=== PATIENT | female | born 1995 | race Caucasian/White ===

== ENCOUNTER 2016-10-08 16:47 | Inpatient (IN) | payer OTHER ==
[~2016-10-08] VITALS: Ht 157.5 cm; Wt 79.4 kg
[2016-10-08] MEDS ORDERED: PRENAT PO (17:14)
[2016-10-08 17:15] VITALS: BP 127/59; PULSE 82; RESP 18
--- NOTE | 2016-10-08 17:34 | RADRPT ---
PROCEDURE: US biophysical profile. CLINICAL INDICATION: Decreased motion. Contractions. TECHNIQUE: Multiple sonographic images of the uterus were obtained. The images were revi ewed on a PACS workstation. COMPARISON: No prior studies are available for comparison. FINDINGS: There is a single live intrauterine gestation. heart rate is 143 beats per minute. The position is cephalic. The placenta is anterior grade III with no abruption or previa. The HARSH is 14.1 cm. (Normal = 5-20 cm.) Breathing Movement: 2 Gross Body Movement: 2 Tone: 2 Qualitative Amniotic Fluid Volume: 2 TOTAL: 8 IMPRESSION: 1. The biophysical score is 8/8. RPTAT: QQ .Prateek Yuen MD, MD Date Time Electronically viewed and signed by .Prateek Yuen MD, on 10/08/2016 17:34 .R/
[2016-10-08] MEDS ORDERED: BUTORPHANOL 2 MG INJ IV PRN ×2 (18:30)
[2016-10-08] MEDS ORDERED: LACTATED RINGER'S 1,000 ML IV PRN (18:30)
[2016-10-08] MEDS ORDERED: MISOPROSTOL 200 MCG TAB PR PRN (18:30)
[2016-10-08] MEDS ORDERED: METHYLERGONOVINE 0.2 MG INJ IM PRN (18:30)
[2016-10-08] MEDS ORDERED: IBUPROFEN 600 MG TAB PO PRN (18:30)
[2016-10-08] MEDS ORDERED: NA PHOSPHATE/BIPHOS 133 ML ENEMA PR PRN (18:30)
[2016-10-08] MEDS ORDERED: OXYTOCIN 30 UNITS/LR 500 ML IV PRN (18:30)
[2016-10-08] MEDS ORDERED: CARBOPROST 250 MCG INJ IM PRN (18:30)
[2016-10-08] MEDS ORDERED: OXYTOCIN 30 UNITS/LR 500 ML IV SCH ×2 (18:30)
[2016-10-08] MEDS ORDERED: MINERAL OIL LIGHT 10 ML VIAL TOP PRN (18:30)
[2016-10-08] MEDS ORDERED: LIDOCAINE 1% (MPF) 30 ML INJ INJ PRN (18:30)
--- NOTE | 2016-10-08 18:46 | TRIAGE ---
OB Triage Datetime Report Generated by CPN: 10/08/2016 18:45 Datetime: 10/08/2016 18:27 Labor Evaluation Frequency: 1.5-3 Monitor Mode: External Duration (sec)2399: 30-60 Quality: Mild Pattern: Normal: <= 5 Contractions in 10 Minutes Resting Tone [place]: Relaxed Heart Rate FHR Baseline Rate: 155 Monitor Mode: External US FHR Baseline Changes: No Baseline Change Variability: Moderate 6-25 bpm Accelerations: 10X10 Decelerations: Variable Category: Category II Pain Assessment Pain Scale: 6 Pain Presence: Intermittent Pain Type: Contraction Pain Location: Abdomen Datetime: 10/08/2016 17:44 Labor Evaluation Frequency: 1-4 Monitor Mode: External Duration (sec)2399: 30-60 Quality: Mild Pattern: Normal: <= 5 Contractions in 10 Minutes Resting Tone [place]: Relaxed Heart Rate FHR Baseline Rate: 145 Monitor Mode: External US FHR Baseline Changes: No Baseline Change Variability: Moderate 6-25 bpm Accelerations: 15X15 Decelerations: Variable Category: Category II Comments: OCCASIONAL VARIABLES, SOME WITH CTX Datetime: 10/08/2016 17:11 Vaginal Exam Dilatation (cms): 2.5 Effacement (%): 70 Station: -2 Exam By: MAY Vaginal Bleeding: None Cervix, Consistency: Soft Cervix, Position: Posterior Presentation 'A': Cephalic Datetime: 10/08/2016 17:08 Stage of : OB Triage Assessment Type: Triage Maternal Assessment Level of Consciousness: Fully Conscious Headache: Denies Blurred Vision: No Respiratory Effort: Unlabored; Regular Rhythm; Equal Expansion Breath Sounds, Left: Clear and Equal Breath Sounds, Right: Clear and Equal Nausea/Vomiting: Denies RUQ Epigastric Pain: Denies Lower Extremities Edema: Bilateral Lower Extremities Degree: 1+ Upper Extremities Edema: None Degree: None Facial Edema: None Temperature Route: Oral Fall Risk Assessment History of Falling: (0) No Secondary Diagnosis: (0) No Ambulatory Aid: (0) Bedrest/Nurse Assist IV Therapy: (0) No Gait: (0) Normal/Bedrest/Immobile Mental Status: (0) Oriented to Own Ability Fall Score: 0 Fall Risk Score Definition: No Risk: No action required Pain Assessment Pain Scale: 6 Pain Presence: Intermittent Pain Type: Contraction Pain Location: Abdomen Datetime: 10/08/2016 17:05 Time of Arrival: 10/08/2016 18:28 EGA: 39.2 Arrived By: Ambulatory Arrived From: Dr. Office Chief Complaint: CONTRACTIONS; STARTING LAST NIGHT, EVERY 2 MINUTES NOW Movement: Present Contractions: Regular Contractions: 2 Rupture of Membranes: Denies Vaginal Bleeding: None Vaginal Discharge: Denies Abdominal Trauma: Not Applicable Patient Complaints: Contractions Time Provider Notified: 10/08/2016 17:30 Provider Notified: DR. BURGOS Initial Plan: EFM x2, BPP, SVE
[2016-10-08] MEDS: LACTATED RINGER'S 1,000 ML IV SCH (19:11)
[2016-10-08 19:31] LABS: ADD SCAN DIFF NO
[2016-10-08 19:35] LABS: BASOPHIL # 0.1 10^3/ul (0.0-0.1); BASOPHILS % 0.5 % (0.0-2.0); EOSINOPHILS # 0.1 10^3/ul (0.0-0.5); EOSINOPHILS % 0.9 % (0.0-7.0); HEMATOCRIT 31.2 % (37.0-47.0); HEMOGLOBIN 9.4 g/dl (12.0-16.0); LYMPHOCYTES # 2.2 10^3/ul (0.8-2.9); LYMPHOCYTES % 22.2 % (18.0-55.0); MEAN CORPUSCULAR HEMOGLOBIN 23.9 pg (29.0-33.0); MEAN CORPUSCULAR HGB CONC 30.1 g/dl (32.0-37.0); MEAN CORPUSCULAR VOLUME 79.4 fl (72.0-104.0); MEAN PLATELET VOLUME 11.6 fl (7.4-10.4); MONOCYTE # 0.6 10^3/ul (0.3-0.9); MONOCYTES % 5.7 % (0.0-13.0); NEUTROPHILS % 70.3 % (30.0-74.0); PLATELET COUNT 314 10^3/UL (140-415); RED BLOOD COUNT 3.93 10^6/ul (4.20-5.40); RED CELL DISTRIBUTION WIDTH 16.3 % (11.5-14.5)
[2016-10-08 20:03] LABS: INR 1.02; PARTIAL THROMBOPLASTIN TIME 29.7 Sec (25.0-35.0); PROTIME 13.4 Sec (12.2-14.2)
[2016-10-09] MEDS: LACTATED RINGER'S 1,000 ML IV SCH ×3 (01:18→12:29)
[2016-10-09] MEDS ORDERED: OXYTOCIN 30 UNITS/LR 500 ML IV SCH (03:30)
[2016-10-09] MEDS ORDERED: NALOXONE (0.4 MG/ML) INJ IV PRN (10:30)
[2016-10-09] MEDS ORDERED: FENTAnyl 2MCG/ML-ROPIV 0.2% 100 ML BAG EPI SCH (10:30)
[2016-10-09] MEDS ORDERED: ONDANSETRON 4 MG INJ IV PRN (10:30)
[2016-10-09] MEDS ORDERED: DIPHENHYDRAMINE 50 MG INJ IV PRN (10:30)
--- NOTE | 2016-10-09 18:22 | HP ---
Date/Time of Note Date/Time of Note DATE: 10/09/16 TIME: 18:17 OB - History Hx of Present Free Text/Dictation admitted at 39 + weeks because of occasional variable deceleration of FHTs Chief Complaint: Labor pains Last Menstrual Period: Jan 07, 2016 Estimated Due Date: Oct 13, 2016 : 2 Para: 1 Care: Good Care Ultrasounds: Normal mid trimester US Obstetrical Complications: None Medical Complications: None Past Family/Social History * Past Medical, Surgical, Family and Obstetric Histories reviewed from chart. Blood Type: A+ Rubella: immune RPR/VDRL: Negative GBS Status: Negative HBsAG: Negative OB Admission Exam Vital Signs Vital Signs Vital Signs Date Time Temp Pulse Resp B/P Pulse Ox O2 Delivery O2 Flow Rate FiO2 10/08/16 17:15 97.4 82 18 127/59 Room Air Physical Exam HEENT: WNL Heart: Rhythm Normal Lungs: Clear, Equal Abdomen: WNL Extremities: Normal Reflexes: Normal Cervical Dilatation: 3cm Effacement: 50% Station: -3 Membranes: Intact Heart Rate: 130's Accelerations: Accelerations Present Decelerations: Variable Decelerations Varibility: Marked Contractions on Admission: 6-10 Minutes Apart Date/Time Contractions Began: 10/09/2015 Frequency of Contractions: Q 5-10 Duration: >30 seconds Intensity: Mild Last 72 hours Lab Results CBC & BMP 10/08/16 19:00 OB Assessment/Plan Other Assessment: early labor term gestation variable deceleration of FHTs Other plan: Augment labor YOVANA BETTS MD Oct 09, 2016 18:22
--- NOTE | 2016-10-09 18:25 | LDN ---
Date/Time of Note Date/Time of Note DATE: 10/09/16 TIME: 18:22 Delivery Summary of a viable over intact perineum Weeks of Gestation 39 + Placenta Delivered: Spontaneously, Intact & Complete Meconium: none Episiotomy: No Estimated blood loss: 400 Sponge & Needle done & correct: Yes All needle counts correct: Yes Any foreign bodies felt in the: No Problems: Infant Delivery Information Sex Sex: male Apgars 1 Minute: 9 5 Minute: 9 Suctioning Nose & mouth suctioned at ana luisa: Yes Delee suction performed: No Umbilical Cord Umbilical cord with: 3 Vessels Cord presentations: no nuchal cord Cord Blood was obtained: Yes Mother & Baby Disposition Disposition Mom & Baby to Maternity; Good: Yes (mother and baby were recovered in good condition ) Mom transferred to: Other (maternity ) Baby to NICU: No YOVANA BETTS MD Oct 09, 2016 18:25
[2016-10-09 21:24] VITALS: BP 111/58; PULSE 90; RESP 18
[2016-10-09 21:40] VITALS: BP 114/52; PULSE 89; RESP 18
[2016-10-09] MEDS ORDERED: MISOPROSTOL 200 MCG TAB PR PRN (22:00)
[2016-10-09] MEDS ORDERED: WITCH HAZEL/GLYCERIN PAD PR PRN (22:00)
[2016-10-09] MEDS ORDERED: ZOLPIDEM 5 MG TAB PO PRN (22:00)
[2016-10-09] MEDS ORDERED: ACETAMINOPHEN/CODEINE #3 TAB PO PRN (22:00)
[2016-10-09] MEDS ORDERED: BENZOCAINE 20% 56 ML SPRAY TOP PRN (22:00)
[2016-10-09] MEDS ORDERED: CARBOPROST 250 MCG INJ IM PRN (22:00)
[2016-10-09] MEDS ORDERED: OXYTOCIN 30 UNITS/LR 500 ML IV PRN (22:00)
[2016-10-09] MEDS ORDERED: METHYLERGONOVINE 0.2 MG INJ IM PRN (22:00)
[2016-10-09] MEDS ORDERED: LANOLIN 7 GM TUBE TOP PRN (22:00)
[2016-10-09] MEDS ORDERED: DIBUCAINE 1% 30 GM OINT PR PRN (22:00)
[2016-10-09] MEDS: LACTATED RINGER'S 1,000 ML IV* SCH (22:01)
[2016-10-09] MEDS: ACETAMINOPHEN/CODEINE #3 TAB PO PRN (22:01)
[2016-10-10] VITALS: BP 107/57; PULSE 87; RESP 18
[2016-10-10] MEDS: CEPHALEXIN 500 MG CAP PO SCH ×5 (00:43→23:59)
[2016-10-10 04:00] VITALS: BP 108/57; PULSE 94; RESP 18
[2016-10-10] MEDS: IBUPROFEN 600 MG TAB PO SCH ×5 (06:39→23:59)
[2016-10-10] MEDS: LACTATED RINGER'S 1,000 ML IV* SCH (07:00)
[2016-10-10 08:00] VITALS: BP 125/66; PULSE 76; RESP 19
[2016-10-10 08:24] LABS: ADD SCAN DIFF NO
[2016-10-10 08:33] LABS: BASOPHIL # 0.1 10^3/ul (0.0-0.1); BASOPHILS % 0.4 % (0.0-2.0); EOSINOPHILS # 0.2 10^3/ul (0.0-0.5); EOSINOPHILS % 1.6 % (0.0-7.0); HEMATOCRIT 25.9 % (37.0-47.0); HEMOGLOBIN 7.7 g/dl (12.0-16.0); LYMPHOCYTES # 2.5 10^3/ul (0.8-2.9); LYMPHOCYTES % 21.1 % (18.0-55.0); MEAN CORPUSCULAR HEMOGLOBIN 23.9 pg (29.0-33.0); MEAN CORPUSCULAR HGB CONC 29.7 g/dl (32.0-37.0); MEAN CORPUSCULAR VOLUME 80.4 fl (72.0-104.0); MEAN PLATELET VOLUME 12.1 fl (7.4-10.4); MONOCYTE # 0.8 10^3/ul (0.3-0.9); MONOCYTES % 6.7 % (0.0-13.0); NEUTROPHIL # 8.3 10^3/ul (1.6-7.5); NEUTROPHILS % 69.9 % (30.0-74.0); PLATELET COUNT 257 10^3/UL (140-415); RED BLOOD COUNT 3.22 10^6/ul (4.20-5.40); RED CELL DISTRIBUTION WIDTH 16.3 % (11.5-14.5); WHITE BLOOD COUNT 11.9 10^3/ul (4.8-10.8)
[2016-10-10] MEDS: SENNA/DOCUSATE NA (8.6MG/50MG) TAB PO SCH ×2 (09:13→21:00)
[2016-10-10] MEDS: MAGNESIUM HYDROXIDE 30ML CUP PO SCH ×2 (09:13→21:00)
[2016-10-10 16:00] VITALS: BP 111/75; PULSE 67; RESP 20
--- NOTE | 2016-10-10 17:20 | DS ---
Date/Time of Note Date/Time of Note home next day DATE: 10/10/16 TIME: 17:19 Obstetrical Discharge Record Final Diagnosis Final Diagnosis: Term delivered Other Final Diagnosis S/P vaginal delivery Vaginal Delivery Obstetrical Delivery: Spontaneous Complications Augmentation: Yes Induction: No Condition on Discharge Physical Assessment Last Vitals: see nurses notes Voiding: Yes Bowel Movement: Yes Breast: Soft, non-tender, Filling Fundus: Firm Abdomen and Incision: soft BS + Episiotomy: NA Calf Tenderness: No Patient Condition: Good YOVANA BETTS MD Oct 10, 2016 17:20
--- NOTE | 2016-10-10 17:21 | PD.PPDC ---
METAL [employer]OR Discharge Instruction Provider Information Physician Information 21 y/o female had vaginal delivery Diagnosis Final Diagnosis: S/P vaginal delivery Condition Patient Condition: Good Diet Diet: Resume Regular Diet Activity/Restrictions Activity: Normal Activity May Shower Restrictions: Nothing in the Vagina Return to Work or School: November 24, 2016 Follow-up Follow-up with Physician: 4, Week/Weeks (in clinic) Return to clinic for OB Instructions: Breast Tenderness Depression YOVANA BETTS MD Oct 10, 2016 17:21
[2016-10-10] MEDS ORDERED: IBUP-1542 PO (17:22)
[2016-10-10 20:00] VITALS: BP 112/65; PULSE 130; PULSE 64; RESP 18; RESP 42
[2016-10-10] MEDS: ACETAMINOPHEN/CODEINE #3 TAB PO PRN (20:01)
[2016-10-11 04:30] VITALS: BP 100/54; PULSE 64
[2016-10-11] MEDS: IBUPROFEN 600 MG TAB PO SCH (05:50)
[2016-10-11] MEDS: CEPHALEXIN 500 MG CAP PO SCH (05:50)
[2016-10-11 07:30] VITALS: BP 116/71; PULSE 74; RESP 16
[2016-10-11] MEDS: SENNA/DOCUSATE NA (8.6MG/50MG) TAB PO SCH (08:36)
[2016-10-11] MEDS: MAGNESIUM HYDROXIDE 30ML CUP PO SCH (08:36)
[2016-10-11] MEDS ORDERED: MEASLES,MUMPS,RUBELLA VACCINE INJ SC* ONE (09:00)
[2016-10-11] MEDS ORDERED: VARICELLA VACCINE LIVE/PF 1,350 UNIT/0.5 ML ML SC* ONE (09:00)
[2016-10-11] MEDS ORDERED: DIPHTH/TET/ACEL PERTUSS (ADULT) 0.5 ML VIAL IM* ONE (09:00)
== END 2016-10-11 11:27 | disposition home or self-care (01) | DRG 775 ==
LOC: OBT 16:47 → L-D 16:48 → OBT 18:44 → L-D 18:45 → PP1 10-09 21:53
PROVIDERS: ADMIT Obstetrics & Gynecology; ATTEND Obstetrics & Gynecology
PROC: 10E0XZZ Delivery of Products of Conception, External Approach (ICD-10-PCS; principal; 2016-10-09)
DX: O80 Encounter for full-term uncomplicated delivery (principal); Z37.0 Single live birth; Z3A.39 39 weeks gestation of pregnancy
CPT/HCPCS: 62319; 76818; 85025; 85610; 85730; 86592; 86900; 86901; 87340; 90715; 90716; G0463; J2590; J3010; J7120